=== PATIENT | male | born 1940 | race Hispanic/Latino ===

== ENCOUNTER 2017-07-31 22:43 | Inpatient (IN) | payer MEDICARE ==
[2017-07-31 23:10] VITALS: BMI 23.1
--- NOTE | 2017-08-01 00:54 | ED PDOC ---
Arrival/HPI <Carlos Eduardo Nova - Last Filed: 08/01/17 02:36> - General Historian: Patient - History of Present Illness Time/Duration: Prior to Arrival Symptom Onset: Sudden Symptom Course: Unchanged Activities at Onset: Rest, Light Context: Home <Carina Arambula - Last Filed: 08/01/17 02:40> - General Chief Complaint: Trauma Time Seen by Provider: 07/31/17 23:31 - History of Present Illness Narrative History of Present Illness (Text): 08/01/17 00:51 A 76 year old male presents to the emergency department complaining of left hip pain s/p fall this evening. The patient states that he was getting out of his car when he turned around, lost his balance, and fell landing on his left hip. The patient complains of severe pain to the left hip, worse with attempted ROM. The patient denies numbness, weakness, or tingling to his hip, trauma to head, headache, dizziness, chest pain, shortness of breath, dyspnea on exertion, cough , abdominal pain, nausea, vomiting, diarrhea, back pain, neck pain, urinary/ bowel changes, or any other complaint. PMD: Dr. Tamez (Carina Arambula) Past Medical History - Provider Review Nursing Documentation Reviewed: Yes - Cardiac Hx Cardiac Disorders: No - Pulmonary Hx Respiratory Disorders: No - Neurological Hx Parkinson's Disease: Yes - HEENT Hx HEENT Disorder: No - Renal Hx Renal Disorder: No - Endocrine/Metabolic Hx Endocrine Disorders: No - Hematological/Oncological Hx Blood Disorders: No - Integumentary Hx Dermatological Disorder: No - Musculoskeletal/Rheumatological Hx Falls: No - Gastrointestinal Hx Gastrointestinal Disorders: No - Genitourinary/Gynecological Hx Genitourinary Disorders: No - Psychiatric Hx Depression: Yes Hx Substance Use: No - Surgical History Hx Tonsillectomy: Yes - Suicidal Assessment Feels Threatened In Home Enviroment: No <Carina Arambula - Last Filed: 08/01/17 02:40> Family/Social History - Physician Review Nursing Documentation Reviewed: Yes Family/Social History: No Known Family HX Smoking Status: Never Smoked Hx Alcohol Use: No Hx Substance Use: No Hx Substance Use Treatment: No <Carina Arambula - Last Filed: 08/01/17 02:40> Allergies/Home Meds <Carlos Eduardo Nova - Last Filed: 08/01/17 02:36> <Carina Arambula - Last Filed: 08/01/17 02:40> Allergies/Adverse Reactions: Allergies Penicillins Allergy (Verified 07/31/17 23:08) ANAPHYLAXIS walnut Allergy (Verified 07/31/17 23:08) RASH Home Medications: Home Meds Medication Instructions Recorded Confirmed Carbidopa/Levodopa/Entacapone 1 tab PO TID 07/31/17 07/31/17 [Carbidopa, Levodopa and Entacapone 31.25 mg-2] Escitalopram [Lexapro] 20 mg PO DAILY 07/31/17 07/31/17 Gabapentin [Neurontin] 400 mg PO BID 07/31/17 07/31/17 LORazepam [Ativan] 0.5 mg PO TID PRN 07/31/17 07/31/17 Tamsulosin HCl [Flomax] 0.4 mg PO DAILY 07/31/17 07/31/17 Turmeric Root Extract [Turmeric] 538 mg PO DAILY 07/31/17 07/31/17 Ubidecarenone [Coq-10] 100 mg PO DAILY 07/31/17 07/31/17 Vit A/Vit C/Vit E/Zinc/Copper 1 each PO DAILY 07/31/17 07/31/17 [Preservision Areds Tablet] Review of Systems - Physician Review All systems were reviewed & negative as marked: Yes - Review of Systems Constitutional: absent: Fevers, Night Sweats Respiratory: absent: SOB, Cough Cardiovascular: absent: Chest Pain, VENTURA Gastrointestinal: absent: Abdominal Pain, Stool Changes, Diarrhea, Nausea, Vomiting Musculoskeletal: Other (Left hip pain.). absent: Back Pain, Neck Pain Neurological: absent: Headache, Dizziness <Carina Arambula - Last Filed: 08/01/17 02:40> Physical Exam Vital Signs Reviewed: Yes Temperature: Afebrile Blood Pressure: Normal Pulse: Regular Respiratory Rate: Normal Appearance: Positive for: Well-Appearing, Non-Toxic, Comfortable Pain Distress: None Mental Status: Positive for: Alert and Oriented X 3 - Systems Exam Head: Present: Atraumatic, Normocephalic Pupils: Present: PERRL Extroacular Muscles: Present: EOMI Conjunctiva: Present: Normal Mouth: Present: Moist Mucous Membranes Neck: Present: Normal Range of Motion Respiratory/Chest: Present: Clear to Auscultation, Good Air Exchange. No: Respiratory Distress, Accessory Muscle Use Cardiovascular: Present: Regular Rate and Rhythm, Murmurs Abdomen: No: Tenderness, Distention, Peritoneal Signs Back: Present: Normal Inspection Upper Extremity: Present: Normal Inspection. No: Cyanosis, Edema Lower Extremity: Present: NORMAL PULSES, Tenderness (Tenderness over left hip anteriorly and laterally. ), Neurovascularly Intact, Capillary Refill < 2 s, Other (Pelvis Stable.). No: Normal ROM (Limited ROM of hip. ) Neurological: Present: GCS=15, CN II-XII Intact, Speech Normal Skin: Present: Warm, Dry, Normal Color. No: Rashes Psychiatric: Present: Alert, Oriented x 3, Normal Insight, Normal Concentration <Carina Arambula - Last Filed: 08/01/17 02:40> Vital Signs Temp Pulse Resp BP Pulse Ox 07/31/17 23:05 98.9 F 69 24 119/67 95 Medical Decision Making <Carlos Eduardo Nova - Last Filed: 08/01/17 02:36> - Lab Interpretations I have reviewed the lab results: Yes <Carina Arambula - Last Filed: 08/01/17 02:40> ED Course and Treatment: 08/01/17 00:56 A 76 year old male presents to the emergency department with complaint of left hip pain s/p fall. code ortho called; morphine ordered PT is refusing any medications for pain; morphine cancelled. Plan; -- Head CT: FINDINGS: Brain: There is mild diffuse cerebral atrophy present, consistent with this patient's age. No hemorrhage. No significant white matter disease. Ventricles: Unremarkable. No ventriculomegaly. Bones/joints: Unremarkable. No acute fracture. Soft tissues: Unremarkable. Sinuses: Unremarkable as visualized. No acute sinusitis. Mastoid air cells: Unremarkable as visualized. No mastoid effusion. IMPRESSION: No evidence of an acute intracranial abnormality. -- Chest X-ray : no infiltrate, chronic changes -- Left Hip X-Ray: + fracture hip sub-capital hip fracture. -- Urinalysis: wnl -- CBC; wnl --cmp; wnl -- Pt/INR: wnl -- PTT: wnl -- type/screen -- EKG; sinus rhythm with frequent PVCs at [address] elevations. Progress Notes: 08/01/17 01:40 pt c/o spasms in the left leg; now agrees to pain medication 08/01/17 02:[address] Tamez in depth; would like dr. carl on consult. admit to med/surg. case discussed with dr. carl. will make patient NPO; consider surgery tomorrow. impression; Hip fracture admit to med/surg (Carina Arambula) - Lab Interpretations Lab Results: 08/01/17 01:09 08/01/17 01:09 Lab Results 08/01/17 01:09: Urine Color Yellow, Urine Appearance Clear, Urine pH 6.5, Ur Specific Lampe 1.010, Urine Protein Negative, Urine Glucose (UA) Negative, Urine Ketones Negative, Urine Blood Negative, Urine Nitrate Negative, Urine Bilirubin Negative, Urine Urobilinogen 0.2, Ur Leukocyte Esterase Negative 08/01/17 01:09: Blood Type Pending, Antibody Screen Pending, BBK History Checked No verified bt 08/01/17 01:09: PT 12.1, INR 1.06, APTT 32.1 08/01/17 01:09: WBC 9.0, RBC 4.03, Hgb 12.8 L, Hct 38.6 L, MCV 95.8, MCH 31.8, MCHC 33.2, RDW 13.3, Plt Count 140, MPV 9.7, Gran % 78.8 H, Lymph % (Auto) 14.9 L, Clinton % (Auto) 5.8, Eos % (Auto) 0.4 L, Baso % (Auto) 0.1, Gran # 7.08 H, Lymph # (Auto) 1.3, Clinton # (Auto) 0.5, Eos # (Auto) 0.0, Baso # (Auto) 0.01 08/01/17 01:09: Sodium 140, Potassium 4.0, Chloride 106, Carbon Dioxide 26, Anion Gap 12, BUN 18, Creatinine 1.2, Est GFR ( Amer) > 60, Est GFR (Non- Af Amer) 59, Random Glucose 98, Calcium 9.0, Total Bilirubin 0.3, AST 21, ALT 19 , Alkaline Phosphatase 68, Total Protein 6.7, Albumin 3.8, Globulin 2.9, Albumin /Globulin Ratio 1.3 - RAD Interpretation Radiology Orders: 07/31/17 23:38 HEAD W/O CONTRAST [CT] Stat CHEST PORTABLE [RAD] Stat 08/01/17 00:07 Hip Left [HIP MIN 2V W/ PELVIS LT] [RAD] Stat - Medication Orders Current Medication Orders: Discontinued Medications Morphine Sulfate (Morphine) 2 mg IVP STAT STA Stop: 07/31/17 23:32 Last Admin: 07/31/17 23:34 Dose: Not Given Non-Admin Reason: Patient Refused Morphine Sulfate (Morphine) 1 mg IVP STAT STA Stop: 08/01/17 01:36 Last Admin: 08/01/17 02:06 Dose: 1 mg IVP Administration Document 08/01/17 02:06 [email or web address] (Rec: 08/01/17 02:06 [email or web address] [id number] TELL[facility]) Charges for Administration # of IVP Administrations 1 Morphine Sulfate (Morphine) 1 mg IVP STAT STA Stop: 08/01/17 02:15 - PA / TERADATA SOLUTION ARCHITECT / Resident Statement MD/ has reviewed & agrees with the documentation as recorded. MD/ has examined the patient and agrees with the treatment plan. <Carlos Eduardo Nova - Last Filed: 08/01/17 02:36> - Scribe Statement The provider has reviewed the documentation as recorded by the Scribe <Carina Arambula - Last Filed: 08/01/17 02:40> - Scribe Statement Barbara Rogers Provider Scribe Attestation: All medical record entries made by the Scribe were at my direction and personally dictated by me. I have reviewed the chart and agree that the record accurately reflects my personal performance of the history, physical exam, medical decision making, and the department course for this patient. I have also personally directed, reviewed, and agree with the discharge instructions and disposition. (Carina Arambula) Disposition/Present on Arrival <Carlos Eduardo Nova - Last Filed: 08/01/17 02:36> - Present on Arrival Any Indicators Present on Arrival: No History of DVT/PE: No History of Uncontrolled Diabetes: No Urinary Catheter: No History of Decub. Ulcer: No History Surgical Site Infection Following: None - Disposition Have Diagnosis and Disposition been Completed?: Yes Disposition Time: 02:15 Patient Plan: Admission <Carina Arambula - Last Filed: 08/01/17 02:40> - Disposition Diagnosis: Hip fracture Disposition: HOSPITALIZED Patient Problems: Current Active Problems Problem Status Onset Hip fracture Acute Condition: FAIR
[2017-08-01] MEDS ORDERED: Morphine 2 mg/2 mL syringe IVP STA ×3 (01:35→03:51)
[2017-08-01 01:40] LABS: PH,URINE 6.5 (4.7-8.0); URINE BILIRUBIN NEGATIVE (NEGATIVE); URINE BLOOD NEGATIVE (NEGATIVE); URINE GLUCOSE (UA) NEGATIVE (NEGATIVE); URINE LEUKOCYTE ESTERASE NEGATIVE Leu/uL (NEGATIVE); URINE PROTEIN NEGATIVE mg/dL (<30 mg/dL); URINE UROBILINOGEN 0.2 E.U./dL (<1 E.U./dL)
[2017-08-01 01:44] LABS: ALB/GLOB RATIO 1.3 (1.1-1.8); ALBUMIN 3.8 g/dL (3.0-4.8); ALT/SGPT 19 U/L (7-56); AST/SGOT 21 U/L (17-59); BASO # 0.01 K/mm3 (0.0-2.0); BASO % 0.1 % (0.0-3.0); BLOOD UREA NITROGEN 18 mg/dL (7-21); EOS % 0.4 % (1.5-5.0); GFR AFRICAN-AMERICAN > 60; GFR NON-AFRICAN AMERICAN 59; GRAN # 7.08 (1.4-6.5); GRAN % 78.8 % (50.0-68.0); HEMOGLOBIN 12.8 g/dL (14.0-18.0); LYMPH # 1.3 (1.2-3.4); LYMPH % 14.9 % (22.0-35.0); MEAN CELL VOLUME 95.8 fl (80.0-105.0); MEAN CORPUSCULAR HEMOGLOBIN 31.8 pg (25.0-35.0); MEAN CORPUSCULAR HGB CONC 33.2 g/dl (31.0-37.0); MEAN PLATELET VOLUME 9.7 fl (7.0-11.0); MONO # 0.5 (0.1-0.6); MONO % 5.8 % (1.0-6.0); RBC 4.03 10^6/uL (3.5-6.1); RED CELL DISTRIBUTION WIDTH 13.3 % (11.5-14.5)
[2017-08-01 01:52] LABS: URINE APPEARANCE CLEAR (CLEAR); URINE COLOR YELLOW (YELLOW)
[2017-08-01 01:58] LABS: INR 1.06 (0.93-1.08); PARTIAL THROMBOPLASTIN TIME 32.1 Seconds (25.1-36.5); PROTHROMBIN TIME 12.1 SECONDS (9.4-12.5)
--- NOTE | 2017-08-01 02:35 | CT ---
EXAM: CT Head Without Intravenous Contrast CLINICAL HISTORY: 76 years old, male; Injury or trauma; Fall; Initial encounter; Concussion / head injury TECHNIQUE: Axial computed tomography images of the head/brain without intravenous contrast. All CT scans at this facility use one or more dose reduction techniques, viz.: automated exposure control; ma/kV adjustment per patient size (including targeted exams where dose is matched to indication; i.e. head); or iterative reconstruction technique. Coronal and sagittal reformatted images were created and reviewed. COMPARISON: No relevant prior studies available. FINDINGS: Brain: There is mild diffuse cerebral atrophy present, consistent with this patient's age. No hemorrhage. No significant white matter disease. Ventricles: Unremarkable. No ventriculomegaly. Bones/joints: Unremarkable. No acute fracture. Soft tissues: Unremarkable. Sinuses: Unremarkable as visualized. No acute sinusitis. Mastoid air cells: Unremarkable as visualized. No mastoid effusion. IMPRESSION: No evidence of an acute intracranial abnormality.
[2017-08-01 04:50] LABS: BLOOD UREA NITROGEN 17 mg/dL (7-21); CALCIUM 8.9 mg/dL (8.4-10.5); GFR AFRICAN-AMERICAN > 60; GFR NON-AFRICAN AMERICAN 59
[2017-08-01] MEDS: Dextrose 5%/0.45% NS 1,000 ML IV SCH ×2 (05:47→22:22)
[2017-08-01] MEDS: Morphine 2 mg/2 mL syringe IVP PRN ×2 (07:03→11:41)
--- NOTE | 2017-08-01 07:08 | CP.PCM.PN ---
Subjective - Date & Time of Evaluation Date of Evaluation: 08/01/17 Time of Evaluation: 07:07 - Subjective Subjective: Patient was complaining of pain in left hip. Nurse also told that EKG that was done in the ER was not read. EKG shows NSR , multiple PVC's Patient complains of left hip pain shooting down to foot. It was helped by morphine that he got earlier in the ER. Has no other complaints. Denies chest pain , sob, nausea, sweating , palpitation. Medical record was reviewed. This 76 year old white male fell and sustained fracture of left femoral neck Has no significant medical history except Parkinson's disease, depression, tonsillectomy, no significant family history , denies smoking history. Objective - Vital Signs/Intake and Output Vital Signs (last 24 hours): Temp Pulse Resp BP Pulse Ox 98.8 F 95 H 20 111/67 99 08/01/17 03:53 08/01/17 03:53 08/01/17 03:53 08/01/17 03:53 08/01/17 03:13 Intake and Output: 08/01/17 08/01/17 06:59 18:59 Intake Total 0 Output Total 0 Balance 0 - Medications Medications: Current Medications Escitalopram Oxalate (Lexapro) 20 mg PO DAILY TYLER Gabapentin (Neurontin) 400 mg PO BID TYLER PRN Reason: Protocol Dextrose/Sodium Chloride (Dextrose 5%/0.45% Ns 1000 Ml) 1,000 mls @ 100 mls/hr IV .Q10H TYLER Stop: 08/04/17 10:00 Last Admin: 08/01/17 05:47 Dose: 100 mls/hr Lorazepam (Ativan) 0.5 mg PO TID PRN; Protocol PRN Reason: Anxiety Morphine Sulfate (Morphine) 2 mg IVP Q4H PRN PRN Reason: Pain, severe (8-10) Last Admin: 08/01/17 07:03 Dose: 2 mg Tamsulosin HCl (Flomax) 0.4 mg PO DAILY TYLER - Labs Labs: 08/01/17 04:25 PT 12.1 SECONDS (9.4-12.5) 08/01/17 01:09 INR 1.06 (0.93-1.08) 08/01/17 01:09 APTT 32.1 Seconds (25.1-36.5) 08/01/17 01:09 - Constitutional Appears: Well, No Acute Distress - Head Exam Head Exam: ATRAUMATIC, NORMAL INSPECTION, NORMOCEPHALIC - Eye Exam Eye Exam: Normal appearance - ENT Exam ENT Exam: Normal External Ear Exam - Neck Exam Neck Exam: Normal Inspection - Respiratory Exam Respiratory Exam: NORMAL BREATHING PATTERN - Cardiovascular Exam Cardiovascular Exam: absent: JVD - GI/Abdominal Exam GI & Abdominal Exam: absent: Distended - Rectal Exam Rectal Exam: Deferred - Exam Additional comments: Deferred. - Extremities Exam Extremities Exam: Normal Inspection Additional comments: Unable to lift left hip. left hip tenderness +. - Back Exam Back Exam: NORMAL INSPECTION - Neurological Exam Neurological Exam: Alert, Awake, Oriented x3 - Psychiatric Exam Psychiatric exam: Normal Affect, Normal Mood - Skin Skin Exam: Normal Color Assessment and Plan - Assessment and Plan (Free Text) Assessment: Left femoral neck fracture . Left hip pain. PVC's. Parkinson's disease. Plan: Morphine 1 mg IV stat. Flexaril 10 mg PO x 1. EKG-serial. Troponin -serial. BMP, mag ,levels this am.
--- NOTE | 2017-08-01 08:43 | RAD ---
HISTORY: Trauma, fall COMPARISON: No prior. FINDINGS: LUNGS: No discrete infiltrates, increased interstitial markings, likely chronic interstitial lung disease. PLEURA: No significant pleural effusion identified, no pneumothorax apparent. CARDIOVASCULAR: No radiographic findings to suggest acute or significant cardiovascular disease. OSSEOUS STRUCTURES: No significant abnormalities. VISUALIZED UPPER ABDOMEN: Normal. OTHER FINDINGS: None. IMPRESSION: No active disease. No significant interval change compared to the prior examination(s).
--- NOTE | 2017-08-01 08:44 | RAD ---
PROCEDURE: Left Hip X-ray Radiographs. HISTORY: hip pain/ s/p fall COMPARISON: None. FINDINGS: BONES: Incompletely visualize subcapital fracture proximal left femur with a component of impaction. JOINTS: Normal. SOFT TISSUES: Normal. OTHER FINDINGS: None. IMPRESSION: Acute subcapital fracture left femur
--- NOTE | 2017-08-01 08:51 | CARD ---
APPROVED REPORT EKG Measurement Heart [id number] <Conclusion> Sinus rhythm with frequent premature ventricular complexes Nonspecific intraventricular block T wave abnormality. Abnormal ECG
--- NOTE | 2017-08-01 09:03 | CARD ---
APPROVED REPORT EKG Measurement Heart [id number] <Conclusion> Normal sinus rhythm with sinus arrhythmia Nonspecific intraventricular block Non Specific ST_T Changes.
[2017-08-01] MEDS ORDERED: Home Med 1 UNIT PO SCH (10:00)
[2017-08-01] MEDS ORDERED: STALEVO PO SCH (10:00)
[2017-08-01] MEDS: STALEVO PO SCH ×4 (10:05→22:22)
[2017-08-01] MEDS ORDERED: Bupivacaine 0.5% Inj(30mL) ONE (12:48)
[2017-08-01] MEDS: CARBIDOPA PO SCH ×2 (13:09→18:09)
[2017-08-01] MEDS: LEVODOPA PO SCH ×2 (13:09→18:09)
[2017-08-01] MEDS: [UNRECOGNIZED DRUG - OTHER] PO SCH ×2 (13:09→18:09)
[2017-08-01] MEDS: ENTACAPONE PO SCH ×2 (13:09→18:09)
[2017-08-01] MEDS ORDERED: ENTACAPONE PO SCH (14:00)
[2017-08-01] MEDS ORDERED: LEVODOPA PO SCH (14:00)
[2017-08-01] MEDS ORDERED: [UNRECOGNIZED DRUG - OTHER] PO SCH (14:00)
[2017-08-01] MEDS ORDERED: CARBIDOPA PO SCH (14:00)
[2017-08-01] MEDS ORDERED: Propofol 10 mg/ml Inj (20 ML) ONE (14:12)
[2017-08-01] MEDS ORDERED: Etomidate 20 mg/10ml Inj IV ONE (14:13)
[2017-08-01] MEDS ORDERED: Rocuronium 10 mg/ml (5 ml) ONE (14:13)
[2017-08-01] MEDS ORDERED: Succinylcholine 200 mg/10 ml Inj IV ONE (14:13)
[2017-08-01] MEDS ORDERED: Midazolam 2 MG/2 ML VIAL ONE (14:13)
[2017-08-01] MEDS ORDERED: Vancomycin 1 g Inj ONE (15:30)
[2017-08-01] MEDS ORDERED: Neostigmine Methylsulfate 3mg/3ml Syringe IV ONE (15:32)
[2017-08-01] MEDS ORDERED: Glycopyrrolate 0.2 mg/ml (2ml vial) ONE (15:33)
[2017-08-01] MEDS ORDERED: ePHEDrine 50 mg/ml Inj ONE (15:58)
[2017-08-01] MEDS ORDERED: HYDROmorphone 0.5 mg/0.5 ml ISec IVP PRN ×2 (16:11→16:38)
[2017-08-01] MEDS ORDERED: Lactated Ringer's 1,000 ML IV SCH (16:45)
--- NOTE | 2017-08-01 17:54 | CON ---
DATE: 08/01/2017 The patient is a 76-year-old male. The patient was admitted early this morning at 6 a.m., now with a fracture of his left hip subscapular displaced that happened yesterday while trying to get out of a car. X-ray shows displaced subscapular fracture of left hip with good bone stalk and we will try to do his surgery today, which would be a bipolar hip prosthesis, as he will get poor resuls if a pinning is done since the bone will get avascular necrosis. So, once he is medically cleared and cardiac cleared, we can do the surgery hopefully today at the OR and at this time I will check in with the OR when they are opened and be back this afternoon. Otherwise, he does ambulate with a walker because of his Parkinson disease. FINAL DIAGNOSIS: Displaced subscapular fracture of left hip, requiring bipolar hip prosthesis when medically and cardiac lopez cleared. Kemar Irby DO EF[facility]
--- NOTE | 2017-08-01 18:25 | RAD ---
PROCEDURE: PORTABLE LEFT HIP HISTORY: post op COMPARISON: Pelvis with left hip radiographs 08/01/2017 prior TECHNIQUE: Single frontal portable left hip radiograph is submitted for interpretation. FINDINGS: Examination reveals the patient is status post left hip hemiarthroplasty treating an impacted fracture of the surgical neck of the left femur. Prosthetic components appear in good apparent position in this single frontal view postoperative changes identified in the lateral soft tissues including skin amanda. IMPRESSION: Status post left hip arthroplasty as discussed above as therapy for impacted surgical neck fracture proximal left femur.
--- NOTE | 2017-08-01 18:25 | CON ---
DATE: 08/01/2017 LOCATION: The patient is in room 573, bed 3. REASON FOR CONSULTATION: Hip fracture, preop cardiac risk stratification. HISTORY OF PRESENT ILLNESS: The patient is a 76-year-old male, admitted with a history that he was getting out of car and he turned around and lost his balance and hit left side of his body and was found to have left hip fracture. The patient denies any dizziness, syncope, chest pain, shortness of breath, palpitation. Denies any nausea or vomiting. Denies any exertional chest pain. He states 3 times a week, he goes to a gym and does exercise for a half hour without any cardiac symptoms. Denies any PND or swelling of the legs. The patient is known to have parkinsonism and he is on medication for that. PAST MEDICAL HISTORY: History of parkinsonism, on medications. The patient also was once told that he had depression. The patient had tonsillectomy in childhood. PERSONAL HISTORY: Denied smoking. Denied drinking. ALLERGIES: THE PATIENT IS ALLERGIC TO PENICILLIN AND WALNUT. MEDICATIONS AT HOME: The patient was at home on gabapentin 400 mg b.i.d., Flomax 0.4 mg daily, Lexapro 20 mg daily and carbidopa and levodopa, entacapone 1 tablet p.o. t.i.d. REVIEW OF SYSTEMS: All the systems reviewed, positives mentioned in the history, others were negative. PHYSICAL EXAMINATION: VITAL SIGNS: Blood pressure 112/68, respirations 20, pulse 94, temperature 98.8. HEENT: Head is normocephalic. Eyes: Pupils normal. Conjunctivae normal. Nose and throat normal. NECK: JVP low. Carotids equal. THORAX: AP diameter normal. LUNGS: Clear. CARDIOVASCULAR: S1 and S2. Ejection systolic murmur grade II-III/. No rub. ABDOMEN: Soft. No tenderness. No organomegaly. Bowel sounds normal. EXTREMITIES: No clubbing. No cyanosis. LABORATORY DATA: Labs shows WBC 9, hemoglobin 12.8, hematocrit 38.6, platelets 140. Sodium 140, potassium 3.9, BUN 17, creatinine 1.2, magnesium 2. Troponin x2 negative. Total protein, albumin normal. Chest x-ray showed chronic changes. EKG shows sinus rhythm, PVC, nonobstructive intraventricular conduction block, T-wave abnormality. DIAGNOSES: Hip fracture due to fall, parkinsonism, premature ventricular contractions on the EKG, calcific aortic valve. PLAN: The patient exercises 3 times a week half hour in the gym. He is asymptomatic from cardiac point of view. The patient can go for a hip surgery as moderate risk. Plan is the patient can go for hip surgery from cardiac point of view as moderate risk. The patient has no symptoms of any cardiac problem. He exercises in gym half hour 3 times a week without any symptoms. The patient will continue present medication, Neurontin 400 mg b.i.d., also taking Flomax 0.4 mg daily. The patient is on gabapentin 400 mg b.i.d. We will follow with you. Dave Torres MD
--- NOTE | 2017-08-01 20:38 | OP ---
PROCEDURE DATE: PREOPERATIVE DIAGNOSIS: Displaced subcapital fracture, left hip. POSTOPERATIVE DIAGNOSIS: Displaced subcapital fracture, left hip. PROCEDURE: Left bipolar prosthesis for the displaced subcapital fracture of the left hip. LAPIDARY APPRENTICE: Dr. Ahumada. ANESTHESIA: General endotracheal tube. DESCRIPTION OF PROCEDURE: Left hip was prepped and draped in sterile fashion in lateral decubitus position. Posterolateral incision made. Deep knife was used to go through the subcutaneous tissue and fascia papi in line with the incision. External rotator was identified and released from the proximal femur protecting the sciatic nerve and once we went down to the capsule it was already __01:12___ because of the fracture what we left it as long as possible, so we took __01:17__ bone of the femur. Then we took out the femoral head and it measured 4. The diameter head measured 55 mm and we did appropriate reaming for the shaft, graduated until we put in a trial component of 15 mm x 155 mm. It seemed to fit good and we did a trial reduction with standard neck and it fit good. We had good capsular tissue to close and then we put in the permanent prosthesis after thorough irrigation of the wound with simple 3000 mL and then put in the permanent prosthesis which was a Biomet collared in a porous coated stem 15 mm x 155 standard neck and a 55 mm bipolar component. The wound was irrigated again with normal saline and closed in layers starting with a capsule for the protection of the anteverted hip so as to minimize this dislocation, we anchored it to the bone in 4 stitches. Then we did a closure of the fascial papi in line with the incision with interrupted Vicryl sutures #1 and subcutaneous 2-0 Vicryl, skin with stainless amanda. The patient was taken to the recovery room in satisfactory condition with abduction pillow and a knee immobilizer. Kemar Irby DO
[2017-08-02 07:31] LABS: BASO # 0.01 K/mm3 (0.0-2.0); BASO % 0.1 % (0.0-3.0); EOS # 0.1 (0.0-0.7); GRAN # 5.96 (1.4-6.5); GRAN % 77.7 % (50.0-68.0); HEMOGLOBIN 10.5 g/dL (14.0-18.0); LYMPH # 0.9 (1.2-3.4); LYMPH % 11.3 % (22.0-35.0); MEAN CELL VOLUME 95.3 fl (80.0-105.0); MEAN CORPUSCULAR HEMOGLOBIN 30.9 pg (25.0-35.0); MEAN CORPUSCULAR HGB CONC 32.4 g/dl (31.0-37.0); MEAN PLATELET VOLUME 9.8 fl (7.0-11.0); MONO # 0.8 (0.1-0.6); MONO % 9.9 % (1.0-6.0); RBC 3.4 10^6/uL (3.5-6.1); RED CELL DISTRIBUTION WIDTH 13.6 % (11.5-14.5); WHITE BLOOD COUNT 7.7 10^3/ul (4.5-11.0)
[2017-08-02 08:21] LABS: ALB/GLOB RATIO 1.1 (1.1-1.8); ALBUMIN 2.9 g/dL (3.0-4.8); ALT/SGPT 22 U/L (7-56); AST/SGOT 33 U/L (17-59); BLOOD UREA NITROGEN 14 mg/dL (7-21); CALCIUM 7.7 mg/dL (8.4-10.5); GFR AFRICAN-AMERICAN > 60; GFR NON-AFRICAN AMERICAN > 60
[2017-08-02 08:26] LABS: TROPONIN I 0.24 ng/mL
[2017-08-02 09:12] LABS: CK-MB 1.4 ng/mL (0.0-3.6)
--- NOTE | 2017-08-02 09:31 | PN ---
DATE: 08/02/2017 FIRST DAY POSTOP REPORT SUBJECTIVE: A 76-year-old male underwent a left hip bipolar prosthesis yesterday for a displaced subcapital fracture. He has less pain. Hemoglobin 10.5 and 32. We will get him out of bed and provide a spirometer to move his lungs better because he had a low-grade fever. We will institute physical therapy to ambulate him, weightbearing to tolerance and to protect him from dislocation. Because of his Parkinson's disease, we will provide him with abduction pillow and a knee immobilizer until the tissues heal in 10 days or so. So we will continue therapy and follow his H&H and plan for subacute rehabs close to where I could see him and visit him several times a week. Kemar Irby DO
[2017-08-02 09:38] VITALS: RESP 18
[2017-08-02] MEDS ORDERED: UBIDECARENONE 100 MG PO SCH ×2 (10:00)
[2017-08-02] MEDS ORDERED: ZINC PO SCH ×2 (10:00)
[2017-08-02] MEDS ORDERED: Enoxaparin 30 mg Syringe SC SCH (10:00)
[2017-08-02] MEDS ORDERED: [UNRECOGNIZED DRUG - OTHER] PO SCH ×2 (10:00)
[2017-08-02] MEDS ORDERED: TURMERIC ROOT EXTRACT 538 MG PO SCH ×2 (10:00)
[2017-08-02] MEDS ORDERED: VIT C PO SCH ×2 (10:00)
[2017-08-02] MEDS ORDERED: VIT E PO SCH ×2 (10:00)
[2017-08-02] MEDS ORDERED: VIT A PO SCH ×2 (10:00)
[2017-08-02] MEDS ORDERED: COPPER PO SCH ×2 (10:00)
[2017-08-02] MEDS ORDERED: Potassium Chloride 20 mEq ER Tab PO STA (10:05)
[2017-08-02] MEDS: STALEVO PO SCH ×4 (10:38→22:02)
[2017-08-02] MEDS: [UNRECOGNIZED DRUG - OTHER] PO SCH ×3 (10:44→17:14)
[2017-08-02] MEDS: CARBIDOPA PO SCH ×3 (10:44→17:14)
[2017-08-02] MEDS: LEVODOPA PO SCH ×3 (10:44→17:14)
[2017-08-02] MEDS: ENTACAPONE PO SCH ×3 (10:44→17:14)
--- NOTE | 2017-08-02 10:48 | RAD ---
HISTORY: R/O pneumonia, post op 102 temp COMPARISON: Yesterday FINDINGS: LUNGS: There is mild linear subsegmental atelectasis at the left lung base, new from prior study. Minor volume loss is seen at the right lung base. No new segmental alveolar infiltrate is appreciated. PLEURA: No significant pleural effusion identified, no pneumothorax apparent. CARDIOVASCULAR: Heart is unchanged in size. Vasculature is not congested. OSSEOUS STRUCTURES: No significant abnormalities. VISUALIZED UPPER ABDOMEN: Normal. OTHER FINDINGS: None. IMPRESSION: Mild linear subsegmental atelectasis at the left lung base. No CHF.
--- NOTE | 2017-08-02 11:02 | HP ---
ADMITTING HISTORY AND PHYSICAL HISTORY OF PRESENT ILLNESS: The patient is a 76-year-old male who was admitted to the [facility] (formerly [facility]) after suffering a mechanical fall and complaining of pain in the left hip. The patient was apparently getting out of his car, he tripped on the curb and went down hard on his left hip; complained of pain, squad was called and he was brought to the emergency room, diagnosed with a left hip fracture and admitted. He was evaluated by Dr. Monae and he is scheduled for surgical repair of the hip fracture. PAST MEDICAL HISTORY: The patient has a past medical history positive for Parkinsonism. He also has a history of anxiety and depression. ALLERGIES: HE IS KNOWN TO BE ALLERGIC TO PENICILLINS, WHICH CAUSED ANAPHYLAXIS IN THE PAST [place]. SOCIAL HISTORY: He never smoked. He is a nonalcoholic drinker. MEDICATIONS: At the time of admission included carbidopa, levodopa, and entacapone 3 times a day. He is also receiving Lexapro 20 mg, Neurontin 400 mg twice a day, Ativan 0.5 mg 3 times a day as needed, Flomax 0.4 mg once a day. He also takes tumeric, CoQ10 and multivitamins. REVIEW OF SYSTEMS: Otherwise, negative. PHYSICAL EXAMINATION: GENERAL: When seen, the patient is awaiting surgery on 5R. Family is at bedside. He is awake, alert and oriented. VITAL SIGNS: The patient is afebrile, blood pressure is 112/68 with a heart rate of 94. HEENT: Examination of the head, eyes, ears, nose, and throat are unremarkable. NECK: Supple with no lymphadenopathy. No goiter. LUNGS: Clear to auscultation and percussion. HEART: Regular. No murmurs are appreciated. ABDOMEN: Soft and nontender with no organomegaly. EXTREMITIES: Free of cyanosis, clubbing or edema. Examination is positive for left hip fracture. NEUROLOGIC: The patient is awake, alert and oriented with no focal neurological signs. CAT scan of the head was performed and it was negative. Chest x-ray shows no acute disease. EKG shows regular sinus rhythm with non-specific ST-T wave changes. LABORATORY STUDIES: White blood cell count is 9, hemoglobin is 12.8, hematocrit is 36 and platelet count is 140. Sodium is 140, potassium is 3.9, BUN and creatinine are 17 and 1.2 respectively and glucose is 101. ASSESSMENT AND PLAN: The patient is found to have B positive type blood and the patient is awaiting surgical repair of his left hip fracture with Dr. Irby, the orthopedist momentarily and postoperatively, the patient will be followed closely. Kemar Tamez MD MTDD
--- NOTE | 2017-08-02 11:18 | CARD ---
APPROVED REPORT EKG Measurement Heart [id number] ND 140P [id number] <Conclusion> Normal sinus rhythm Nonspecific intraventricular block Nonspecific T wave abnormality Abnormal ECG
--- NOTE | 2017-08-02 11:34 | CARD ---
APPROVED REPORT EXAM: Two-dimensional and M-mode echocardiogram with Doppler and color Doppler. INDICATION 2D DIMENSIONS IVSd1.2 (0.7-1.1cm)LVDd5.0 (3.9-5.9cm) PWd0.9 (0.7-1.1cm)LVDs4.3 (2.5-4.0cm) FS (%) 13.9 %LVEF (%)29.9 (>50%) M-Mode DIMENSIONS Aortic Root2.80 (2.2-3.7cm)Aortic Cusp Exc.1.40 (1.5-2.0cm) Aortic Valve AoV Peak Ukmaqspg338.0cm/sAoV VTI40.1cmAO Peak GR.19mmHg LVOT Peak Hsyvqzic81.2cm/sLVOT VTI13.90cmAO Mean GR.11mmHg Mitral Valve MV E Qwmgwoja735.0cm/sMV A Bascesjc696.0cm/sE/A ratio0.7 TDI Lateral E' Peak V7.31cm/sMedial E' Peak V5.07cm/sE/Lateral E'16.7 E/Medial E'24.1 Tricuspid Valve TR Peak Akltckwq011or/sRAP [id number] Peak Gr.13mmHg [id number] LEFT VENTRICLE The left ventricle is normal size. There is normal left ventricular wall thickness. The systolic function is moderately impaired.EF-35% There is normal LV segmental wall motion. Transmitral Doppler flow pattern is Grade III-reversible restrictive diastolic dysfunction. No left ventricle thrombus noted on this study. There is no ventricular septal defect visualized. There is no left ventricular aneurysm. There is no mass noted in the left ventricle. RIGHT VENTRICLE The right ventricle is normal size. There is normal right ventricular wall thickness. The right ventricular systolic function is normal. ATRIA The left atrium is borderline dilated. The right atrium size is normal. The interatrial septum is intact with no evidence for an atrial septal defect. AORTIC VALVE The aortic valve is calcified and displays decreased opening. There is trace aortic regurgitation. There is mild valvular aortic stenosis. There is no aortic valvular vegetation. MITRAL VALVE The mitral valve is calcified and displays decreased opening. Mitral regurgitation is trace. There is mild to moderate mitral valve stenosis. There is no evidence of mitral valve prolapse. TRICUSPID VALVE The tricuspid valve leaflets are thickened , but open well. There is trace tricuspid regurgitation.RVSP-23 mmof Hg There is no tricuspid valve stenosis. There is no tricuspid valve prolapse or vegetation. PULMONIC VALVE The pulmonic valve leaflets are thin and pliable; valve motion is normal. GREAT VESSELS The aortic root is normal in size. The ascending aorta is normal in size. The pulmonary artery is normal. The IVC is dilated. PERICARDIAL EFFUSION There is no pleural effusion. There is no pericardial effusion. <Conclusion> The left ventricle is normal size. There is normal left ventricular wall thickness. The systolic function is moderately impaired.EF-35% There is trace aortic regurgitation. There is mild valvular aortic stenosis. Mitral regurgitation is trace. There is trace tricuspid regurgitation.RVSP-23 mmof Hg The IVC is dilated. There is no pericardial effusion.
--- NOTE | 2017-08-02 14:19 | PN ---
DATE: 08/02/2017 REASON FOR CONSULTATION AND FOLLOWUP: Preop evaluation for hip fracture, status post OR and internal fixation. Postop, the patient becomes bradycardic, troponin was as borderline positive. SUBJECTIVE: The patient denies any chest pain, shortness of breath, or any palpitation. OBJECTIVE: GENERAL: Not in apparent distress. VITAL SIGNS: Temperature 102.1, heart rate 90, blood pressure 100/64. HEENT: PERRLA. Extraocular muscles intact. NECK: Supple. No carotid bruit or thyromegaly. CHEST: Clear to auscultation. HEART: S1 and S2 regular. ABDOMEN: Soft. EXTREMITIES: Clubbing and cyanosis negative. LABORATORY DATA: WBC 7.7, hemoglobin 10.5, hematocrit 32.4, platelet count 106. Chemistry shows sodium 135, potassium 3.8, chloride 104, carbon dioxide 26, anion gap of 9, BUN 14, creatinine 1.1. Troponin 0.02, 0.16, 0.24. Total CPK , MB fraction 1.2. EKG yesterday, normal sinus, no acute ST-T wave changes noted. IMPRESSION: The patient is asymptomatic. Borderline troponin is positive, is secondary to rhabdomyolysis, secondary to postop, MB fraction 1.4, doubted as myocardial infarction. We will repeat EKG. We will repeat echo to assess left ventricular function. We will send the panculture because of the patient's fever and also blood culture. So far, the patient is fairly stable. Discuss with Dr. Irby and discuss with the patient. The patient is asymptomatic, has a very active lifestyle. The patient goes 3 times a week to gym and does exercise for half an hour without any cardiac symptoms. We will supplement a little potassium. Continue deep venous thrombosis prophylaxis. We will review echo when it is done. We will give gentle hydration and send the blood cultures stat. We will get stat portable chest x-ray to rule out pneumonia. We will also add baby aspirin. We will follow with you. I doubt it is myocardial infarction. Dave Orr MD
[2017-08-02 15:19] VITALS: BP 100/63; PULSE 80; TEMP 100.3; O2SAT 98
[2017-08-02 16:12] LABS: CK-MB 1.6 ng/mL (0.0-3.6); TROPONIN I 0.15 ng/mL
--- NOTE | 2017-08-03 04:35 | PN ---
DATE: 08/02/2017 SUBJECTIVE: The patient is a 76-year-old male with a history of Parkinsonism, anxiety and depression, who suffered a mechanical fall getting out of his car. He landed hard on his left hip. Complaining of pain, he was brought to the Emergency Room, diagnosed with a left hip fracture. This was surgically repaired by Dr. Irby yesterday. When seen today, the patient is awake alert, and oriented. His family is at bedside. He voices no complaints. OBJECTIVE: VITAL SIGNS: His blood pressure is 100/64 with heart rate of 90. LUNGS: Clear anteriorly. HEART: Regular. ABDOMEN: Abdomen is soft and nontender. EXTREMITIES: He does have some occasional spasmodic type pain from the left hip. Of concern is that the patient seems to running temperatures as high as 102.1, for which he received Tylenol. His white blood cell count however this morning is 7.7, and this will be repeated again tomorrow. Blood cultures were drawn also. Also of note that is that his troponins were positive this morning at 0.16. Dr. Orr, his slash trimmer, was notified and is aware. He will continue to follow the patient as he is hemodynamically stable. We are continuing with his carbidopa/levodopa and entacapone 3 times a day for his Parkinsonism. We are continuing with his Lexapro 20 mg, Neurontin 400 mg twice a day, Ativan 0.5 mg 3 times a day and Flomax 0.4 mg once a day. The patient is to be reevaluated in the morning and we will continue to follow him closely. Kemar Tamez MD
--- NOTE | 2017-08-03 07:17 | CP.PCM.PN ---
Subjective - Date & Time of Evaluation Date of Evaluation: 08/03/17 Time of Evaluation: 07:16 - Subjective Subjective: It was requested to intubate. # 7.5 ETT inserted. Confirmed position with CO2 detector/direct visualization. Objective - Vital Signs/Intake and Output Vital Signs (last 24 hours): Temp Pulse Resp BP Pulse Ox 100.3 F H 80 18 100/63 98 08/02/17 15:22 08/02/17 14:00 08/02/17 14:00 08/02/17 14:00 08/02/17 14:00 Intake and Output: 08/03/17 08/03/17 06:59 18:59 Intake Total 300 Output Total 600 Balance -300 - Medications Medications: Current Medications Acetaminophen (Tylenol 325mg Tab) 650 mg PO Q6H PRN PRN Reason: Other fever > 101 F Last Admin: 08/02/17 15:22 Dose: 650 mg Aspirin (Ecotrin) 81 mg PO DAILY [facility] Last Admin: 08/02/17 10:38 Dose: 81 mg Enoxaparin Sodium (Lovenox) 30 mg SC DAILY [facility] PRN Reason: Protocol Last Admin: 08/02/17 10:39 Dose: 30 mg Escitalopram Oxalate (Lexapro) 20 mg PO DAILY [facility] Last Admin: 08/02/17 10:38 Dose: 20 mg Gabapentin (Neurontin) 400 mg PO BID [facility] PRN Reason: Protocol Last Admin: 08/02/17 17:13 Dose: 400 mg Home Med (Home Med) 0 unit PO QID [facility] Last Admin: 08/02/17 22:02 Dose: 1 unit Hydromorphone HCl (Dilaudid) 0.5 mg IVP Q4H PRN PRN Reason: Pain, Mild (1-3) Lorazepam (Ativan) 0.5 mg PO TID PRN; Protocol PRN Reason: Anxiety Last Admin: 08/03/17 05:00 Dose: 0.5 mg Non-Formulary Medication (Carbidopa/Levodopa/Entacapone [Carbidopa-Levodopa 125 Mg-Enta]) 1 tab PO TID [facility] Last Admin: 08/02/17 17:14 Dose: Not Given Non-Formulary Medication (Turmeric Root Extract [Turmeric]) 538 mg PO DAILY [facility] Last Admin: 08/02/17 10:43 Dose: Not Given Non-Formulary Medication (Ubidecarenone [Coq-10]) 100 mg PO DAILY [facility] Last Admin: 08/02/17 10:43 Dose: Not Given Non-Formulary Medication (Vit A/Vit C/Vit E/Zinc/Copper [Preservision Areds Tablet]) 1 each PO DAILY [facility] Last Admin: 08/02/17 10:42 Dose: Not Given Tamsulosin HCl (Flomax) 0.4 mg PO DAILY [facility] Last Admin: 08/02/17 10:38 Dose: 0.4 mg - Labs Labs: 08/02/17 06:40 08/02/17 06:40 PT 12.1 SECONDS (9.4-12.5) 08/01/17 01:09 INR 1.06 (0.93-1.08) 08/01/17 01:09 APTT 32.1 Seconds (25.1-36.5) 08/01/17 01:09
--- NOTE | 2017-08-03 07:20 | CP.PCM.PRO ---
Pronouncement of Note - Clinical Findings Physical Exam: No Response Verbal/Painful Stimuli, Absent Peripheral Pulses{ Carotid & Femoral}, Absent Heart & Breath Sounds, Pupils Fixed & Dilated, Absence of Vital Signs - Pronouncement Time Time of Pronouncement of : 07:04 Additional Comments: s/p 21 minutes of CPR, 5x Epi, 1x Bicarb. Asystolic throughout code. - Notifications Pronouncement Notifications: Family Notified, Atending Notified Daily Sales Audit Clerk Notified: No - Autopsy Autopsy Requested: No [place] [id number]
== END 2017-08-03 07:04 | DRG 470 ==
LOC: ED 22:43 → ERH 08-01 02:14 → 5RSO 08-01 03:16
PROVIDERS: ADMIT Internal Medicine; ATTEND Internal Medicine
PROC: 0SRB0JA Replacement of Left Hip Joint with Synthetic Substitute, Uncemented, Open Approach (ICD-10-PCS; principal; 2017-08-01 13:30)
PROC: 0BH17EZ Insertion of Endotracheal Airway into Trachea, Via Natural or Artificial Opening (ICD-10-PCS; 2017-08-03)
PROC: 5A12012 Performance of Cardiac Output, Single, Manual (ICD-10-PCS; 2017-08-03)
DX: S72.012A Unspecified intracapsular fracture of left femur, initial encounter for closed fracture (principal); M62.82 Rhabdomyolysis; W01.0XXA Fall on same level from slipping, tripping and stumbling without subsequent striking against object, initial encounter; G20 Parkinson's disease; Z88.0 Allergy status to penicillin; I49.3 Ventricular premature depolarization; R50.9 Fever, unspecified; F41.9 Anxiety disorder, unspecified; F32.89 Other specified depressive episodes